=== PATIENT | male | born 1935 | race Caucasian/White ===

== ENCOUNTER → 2016-09-07 | Outpatient (CLI) | payer MEDICARE, BC ==
[2016-09-07 15:26] LABS: Blood Urea Nitrogen 12 mg/dL (9-20); Non-African American GFR(MDRD) >60 (>60 ml/min/1.73 sqM)
--- NOTE | 2016-09-07 16:13 | CT ---
EXAMINATION TYPE: CT abdomen w con DATE OF EXAM: 09/07/2016 3:57 PM REFERENCE: Previous study dated 03/30/2016. HISTORY: R93.5 Abnormal us of Abd HISTORY: Pt states of distention on right side of abdomen. REFERENCE: NONE CT DLP: 686.1 mGy Automated exposure control for dose reduction was used. TECHNIQUE: Helical acquisition through the abdomen and pelvis was obtained following the oral ingesti on of with Oral Contrast and following intravenous administration of 100 mL of Omnipaque 300. The selvin a was reformatted in axial, coronal and sagittal projections. FINDINGS: There is minimal dependent atelectasis within the lungs. There is no pleural or pericardia l fluid heart is not enlarged. Within the abdomen, there is a stable 8.5 mm cyst in the posterior segment of the right lobe of the l iver and several other small cysts throughout the right lobe of the liver. All these are unchanged. T he spleen demonstrates old granulomatous disease. The gallbladder is normal. There is a previous epigastric surgery. Both adrenal glands are normal. There is a stable 1 cm cyst in the mid polar region of the right kidney. There are several small cyst s in the left kidney which are also stable. The pancreas is unremarkable. There is no significant retroperitoneal adenopathy. There is thickening of the bladder wall. There has been a previous sigmoid resection. Large and small bowel loops are otherwise normal. The ap pendix is not visualized. No free fluid and no free air is seen. There is degenerative disc disease and hypertrophic spondylosis within the spine. IMPRESSION: 1. POSTSURGICAL CHANGE. 2. MULTIPLE, STABLE HEPATIC CYSTS. 3. 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 4. STABLE, SIMPLE APPEARING RENAL CYSTS. 5. THICKENING OF THE BLADDER WALL. 6. DEGENERATIVE CHANGES WITHIN THE SPINE.
== END | disposition home or self-care (01) ==
LOC: RADCTMAIN 14:42
PROVIDERS: ATTEND Family Medicine
DX: N28.1 Cyst of kidney, acquired (principal); K76.89 Other specified diseases of liver; N32.89 Other specified disorders of bladder; Z98.890 Other specified postprocedural states
CPT/HCPCS: 82565; 84520; 74160; 36415; Q9967

== ENCOUNTER 2017-02-11 06:44 | Emergency (ER) | payer MEDICARE, BC ==
[2017-02-11 06:50] VITALS: RESP 18
[2017-02-11] MEDS ORDERED: ONDANSETRON 4 MG/2 ML VIAL IVP STA (07:35)
[2017-02-11] MEDS ORDERED: MORPHINE SULFATE 4 MG/ML SYRINGE IV STA (07:35)
[2017-02-11] MEDS ORDERED: SODIUM CHLORIDE 0.9% 1,000 ML IV STA ×2 (07:35)
[2017-02-11 08:22] LABS: Anisocytosis Slight; Basophils % (A) 0 %; CH 36.7; CHCM 34.4; Eosinophils % (A) 1 %; HDW 3.11; HGB 14.2 gm/dL (13.0-17.5); Luc # (Auto) 0.09; Luc % (Auto) 1; Lymphocytes # (A) 0.5 k/uL (1.0-4.8); Lymphocytes % (A) 7 %; MCHC 34.6 g/dL (31.0-37.0); MCV 106.8 fL (80.0-100.0); Macrocytosis Moderate; Mean Platelet Volume 7.9; Monocytes # (A) 0.3 k/uL (0-1.0); Monocytes % (A) 5 %; Neutrophils # (A) 6.3 k/uL (1.3-7.7); Neutrophils % (A) 86 %; RBC 3.83 m/uL (4.30-5.90); RDW 16.2 % (11.5-15.5); WBC 7.3 k/uL (3.8-10.6); WBC (Perox) 7.55
--- NOTE | 2017-02-11 08:25 | ED ---
General Adult HPI - General Chief complaint: Nausea/Vomiting/Diarrhea Stated complaint: Vomiting Time Seen by Provider: 02/11/17 07:31 Source: patient, RN notes reviewed, old records reviewed Mode of arrival: ambulatory Limitations: no limitations - History of Present Illness Initial comments: This is an 79-year-old male to the ER for evaluation of abdominal pain. Severe left lower quadrant of diarrhea with nausea and vomiting. Denies fever. No blood in his stool. Patient has history of bowel pain multiple bowel surgeries history of abdominal hernia. Patient is able Tyrol intake at this time patient had taken anything specifically for pain or nausea at home right now - Related Data Home Medications Medication Instructions Recorded Confirmed Abatacept/Maltose [Orencia] 750 mg IVPB Q30D 12/18/13 02/11/17 Multivitamin [Men's Multi-Vitamin] 1 tab PO DAILY 12/18/13 02/11/17 Methotrexate Sodium [Methotrexate] 12.5 mg PO WE 03/12/14 02/11/17 Aspirin EC [Ecotrin Low Dose] 81 mg PO HS 02/18/15 02/11/17 Iron 18 mg PO DAILY 08/16/15 02/11/17 Docusate [Colace] 100 mg PO DAILY 09/22/15 02/11/17 Folic Acid 0.8 mg PO DAILY 03/30/16 02/11/17 Previous Rx's Medication Instructions Recorded Famotidine [Pepcid] 20 mg PO BID #20 tablet 03/30/16 Allergies Allergy/AdvReac Type Severity Reaction Status Date / Time Penicillins AdvReac Nausea & Verified 02/11/17 06:50 Vomiting & Diarrhea Review of Systems ROS Statement: Those systems with pertinent positive or pertinent negative responses have been documented in the HPI. ROS Other: All systems not noted in ROS Statement are negative. Past Medical History Past Medical History: Blood Disorder, Cancer, GERD/Reflux, Prostate Disorder, Rheumatoid Arthritis (RA) Additional Past Medical History / Comment(s): 03/25/15 large bowel obstruction, HAD SURG W/ COLOSTOMY. RA, Orencia IV q 4 weeks. BPH. HX Alcoholism. Skin Cancer. Chronic Thrombocytopenia. Sinus Prob. 1994 LT Foot Fx. EDEMA RT FOOT. History of Any Multi-Drug Resistant Organisms: None Reported Past Surgical History: Appendectomy, Bowel Resection, Hernia Repair Additional Past Surgical History / Comment(s): Hernia Repair x4-Jayce ing, ventral. Ulcer - gastric scraping. LT Eye Surg D/T Benign Tumor. Skin Cancer Removals. Colonoscopy. BOWEL RESECTION W/ COLOSTOMY 03/26/15; PICC LINE 04/01/15 - OUT NOW. incisional hernial repair at abdomen august 2015/ jun 29 2015 colostomy reversed per pt Past Anesthesia/Blood Transfusion Reactions: No Reported Reaction Additional Past Anesthesia/Blood Transfusion Reaction / Comment(s): Pt has never recieved blood. Past Psychological History: No Psychological Hx Reported Smoking Status: Former smoker - Past Family History Father Family Medical History: CVA/TIA Additional Family Medical History / Comment(s): Father had a pacemaker. He at age 85 yrs. Mother Family Medical History: Hypertension, Skin Disorder Additional Family Medical History / Comment(s): Mother had a pacemaker. She also had psoriasis. Sister(s) Family Medical History: Cancer General Exam Limitations: no limitations General appearance: alert, in no apparent distress Head exam: Present: atraumatic, normocephalic, normal inspection Eye exam: Present: normal appearance, PERRL, EOMI. Absent: scleral icterus, conjunctival injection, periorbital swelling ENT exam: Present: normal exam, mucous membranes moist Neck exam: Present: normal inspection. Absent: tenderness, meningismus, lymphadenopathy Respiratory exam: Present: normal lung sounds bilaterally. Absent: respiratory distress, wheezes, rales, rhonchi, stridor Cardiovascular Exam: Present: regular rate, normal rhythm, normal heart sounds. Absent: systolic murmur, diastolic murmur, rubs, gallop, clicks GI/Abdominal exam: Present: soft, normal bowel sounds. Absent: distended, tenderness, guarding, rebound, rigid Extremities exam: Present: normal inspection, full ROM, normal capillary refill. Absent: tenderness, pedal edema, joint swelling, calf tenderness Back exam: Present: normal inspection Neurological exam: Present: alert, oriented X3, CN II-XII intact Psychiatric exam: Present: normal affect, normal mood Skin exam: Present: warm, dry, intact, normal color. Absent: rash Course Vital Signs 02/11/17 02/11/17 06:45 08:18 Temperature 98 F Pulse Rate 65 60 Respiratory 18 18 Rate Blood Pressure 182/85 187/86 O2 Sat by Pulse 97 100 Oximetry - Reevaluation(s) Reevaluation #1: 02/11/17 09:19 Symptoms improved, patient would like to be discharged home Reevaluation #2: 02/11/17 09:20 Dr. Rodriguez aware of patient in emergency room, okay for discharge follow-up on Sunday EKG Findings - EKG Comments: EKG Findings:: EKG shows sinus rhythm rate of 70, pO2 26, QRS 132, QTC 470 Medical Decision Making - Medical Decision Making 81 male the ER for reevaluation of nausea vomiting history of hernia symptoms improved patient can be discharged home as needed be discharged home will follow -up with Dr. Rodriguez in 2 days - Lab Data Result diagrams: 02/11/17 07:33 02/11/17 07:33 Lab Results 02/11/17 02/11/17 02/11/17 Range/Units 07:33 07:33 07:33 WBC 7.3 (3.8-10.6) k/uL RBC 3.83 L (4.30-5.90) m/uL Hgb 14.2 (13.0-17.5) gm/dL Hct 41.0 (39.0-53.0) % MCV 106.8 H (80.0-100.0) fL MCH 37.0 H (25.0-35.0) pg MCHC 34.6 (31.0-37.0) g/dL RDW 16.2 H (11.5-15.5) % Plt Count 252 (150-450) k/uL Neutrophils % 86 % Lymphocytes % 7 % Monocytes % 5 % Eosinophils % 1 % Basophils % 0 % Neutrophils # 6.3 (1.3-7.7) k/uL Lymphocytes # 0.5 L (1.0-4.8) k/uL Monocytes # 0.3 (0-1.0) k/uL Eosinophils # 0.0 (0-0.7) k/uL Basophils # 0.0 (0-0.2) k/uL Anisocytosis Slight Macrocytosis Moderate PT (9.0-12.0) sec INR (<1.2) APTT (22.0-30.0) sec Sodium 137 (137-145) mmol/L Potassium 4.8 (3.5-5.1) mmol/L Chloride 108 H (98-107) mmol/L Carbon Dioxide 26 (22-30) mmol/L Anion Gap 3 mmol/L BUN 11 (9-20) mg/dL Creatinine 0.74 (0.66-1.25) mg/dL Est GFR (MDRD) Af Amer >60 (>60 ml/min/1.73 sqM) Est GFR (MDRD) Non-Af >60 (>60 ml/min/1.73 sqM) Glucose 80 (74-99) mg/dL Plasma Lactic Acid Johny (0.7-2.0) mmol/L Calcium 8.5 (8.4-10.2) mg/dL Phosphorus 2.3 L (2.5-4.5) mg/dL Magnesium 2.3 (1.6-2.3) mg/dL Total Bilirubin 0.8 (0.2-1.3) mg/dL AST 52 (17-59) U/L ALT 38 (21-72) U/L Alkaline Phosphatase 75 (38-126) U/L Total Creatine Kinase 44 L (55-170) U/L CK-MB (CK-2) 0.6 (0.0-2.4) ng/mL CK-MB (CK-2) Rel Index 1.4 Troponin I 0.018 (0.000-0.034) ng/mL Total Protein 6.3 (6.3-8.2) g/dL Albumin 3.4 L (3.5-5.0) g/dL 02/11/17 02/11/17 Range/Units 07:33 07:33 WBC (3.8-10.6) k/uL RBC (4.30-5.90) m/uL Hgb (13.0-17.5) gm/dL Hct (39.0-53.0) % MCV (80.0-100.0) fL MCH (25.0-35.0) pg MCHC (31.0-37.0) g/dL RDW (11.5-15.5) % Plt Count (150-450) k/uL Neutrophils % % Lymphocytes % % Monocytes % % Eosinophils % % Basophils % % Neutrophils # (1.3-7.7) k/uL Lymphocytes # (1.0-4.8) k/uL Monocytes # (0-1.0) k/uL Eosinophils # (0-0.7) k/uL Basophils # (0-0.2) k/uL Anisocytosis Macrocytosis PT 11.5 (9.0-12.0) sec INR 1.2 H (<1.2) APTT 23.8 (22.0-30.0) sec Sodium (137-145) mmol/L Potassium (3.5-5.1) mmol/L Chloride (98-107) mmol/L Carbon Dioxide (22-30) mmol/L Anion Gap mmol/L BUN (9-20) mg/dL Creatinine (0.66-1.25) mg/dL Est GFR (MDRD) Af Amer (>60 ml/min/1.73 sqM) Est GFR (MDRD) Non-Af (>60 ml/min/1.73 sqM) Glucose (74-99) mg/dL Plasma Lactic Acid Johny 0.9 (0.7-2.0) mmol/L Calcium (8.4-10.2) mg/dL Phosphorus (2.5-4.5) mg/dL Magnesium (1.6-2.3) mg/dL Total Bilirubin (0.2-1.3) mg/dL AST (17-59) U/L ALT (21-72) U/L Alkaline Phosphatase (38-126) U/L Total Creatine Kinase (55-170) U/L CK-MB (CK-2) (0.0-2.4) ng/mL CK-MB (CK-2) Rel Index Troponin I (0.000-0.034) ng/mL Total Protein (6.3-8.2) g/dL Albumin (3.5-5.0) g/dL - Radiology Data Radiology results: report reviewed (X-ray KUB ileus), image reviewed Disposition Clinical Impression: Nausea and vomiting, Dehydration Disposition: HOME SELF-CARE Condition: Good Instructions: Acute Nausea and Vomiting (ED) Referrals: Purvi Chew DO [Primary Care Provider] - 1-2 days
[2017-02-11 08:30] LABS: INR 1.2 (<1.2); Partial Thromboplastin Time 23.8 sec (22.0-30.0); Prothrombin Time 11.5 sec (9.0-12.0)
--- NOTE | 2017-02-11 08:33 | XR ---
EXAMINATION TYPE: XR KUB DATE OF EXAM: 02/11/2017 COMPARISON: NONE HISTORY: Pain TECHNIQUE: Single supine KUB image of the abdomen is obtained FINDINGS: Mild distention of both small and large bowel with scattered air-fluid level seen may reflect ileus. Epigastric surgical clips noted. No convincing evidence for pneumoperitoneum. No unusual calcifications. The lung bases are clear. The osseous structures are intact. IMPRESSION: 1. Nonspecific bowel gas pattern. Correlate for ileus. Progress studies are advised.
[2017-02-11 08:42] LABS: ALT 38 U/L (21-72); AST 52 U/L (17-59); Alkaline Phosphatase 75 U/L (38-126); Anion Gap 3 mmol/L; Blood Urea Nitrogen 11 mg/dL (9-20); Calcium 8.5 mg/dL (8.4-10.2); Carbon Dioxide 26 mmol/L (22-30); Chloride 108 mmol/L (98-107); Glucose 80 mg/dL (74-99); Magnesium 2.3 mg/dL (1.6-2.3); Non-African American GFR(MDRD) >60 (>60 ml/min/1.73 sqM); Phosphorous 2.3 mg/dL (2.5-4.5); Sodium 137 mmol/L (137-145); Total Bilirubin 0.8 mg/dL (0.2-1.3); Total Protein 6.3 g/dL (6.3-8.2)
[2017-02-11 08:45] LABS: Potassium 4.8 mmol/L (3.5-5.1)
[2017-02-11 08:58] LABS: Creatine Kinase MB 0.6 ng/mL (0.0-2.4); Troponin I 0.018 ng/mL (0.000-0.034)
[2017-02-11 09:19] LABS: Appearance,Urine Turbid (Clear); Bacteria,Urine Rare /hpf; Bilirubin,Urine Negative (Negative); Glucose,Urine (UA) Negative (Negative); Ketones,Urine Negative (Negative); Leukocyte Esterase,Urine Negative (Negative); Mucus,Urine Many /hpf; Nitrite,Urine Negative (Negative); PH, Urine 7.5 (5.0-8.0); Particle Count 40033; Protein,Urine Trace (Negative); RBC,Urine 2 /hpf (0-5); Specific Gravity,Urine 1.021 (1.001-1.035); UA Billing (MACRO vs. MICRO) MICRO; Urobilinogen,Urine <2.0 mg/dL (<2.0)
[2017-02-11 09:42] VITALS: BP 182/85; PULSE 74; TEMP 98
== END 2017-02-11 09:42 | disposition home or self-care (01) ==
LOC: EC 06:44
DX: E86.0 Dehydration (principal); R11.2 Nausea with vomiting, unspecified; R10.32 Left lower quadrant pain; M06.9 Rheumatoid arthritis, unspecified; Z85.828 Personal history of other malignant neoplasm of skin; Z90.49 Acquired absence of other specified parts of digestive tract; Z98.890 Other specified postprocedural states; Z88.0 Allergy status to penicillin; Z87.891 Personal history of nicotine dependence; Z79.82 Long term (current) use of aspirin; Z79.899 Other long term (current) drug therapy
CPT/HCPCS: 36415; 93005; 80053; 82550; 82553; 83605; 83735; 84100; 84484; 85025; 85610; 85730; 81001; 87086; 74000; 99284; 96374; 96375; 96361; J2270; J2405

== ENCOUNTER → 2017-02-16 | Outpatient (CLI) | payer MEDICARE, BC | END | disposition home or self-care (01) | LOC: LABWHC1 12:30 | PROVIDERS: ATTEND Surgery | DX: Z01.812 Encounter for preprocedural laboratory examination (principal) | CPT/HCPCS: 86850; 86900; 86901 ==

== ENCOUNTER 2017-02-21 09:20 | Inpatient (IN) | payer MEDICARE, BC ==
[2017-02-16 09:30] VITALS: BMI 25.1
[~2017-02-21 09:20] MED LIST: DEXAMETHASONE SOD PHOSPHATE 10 MG/ML 1 ML VIAL IV ONE; FAMOTIDINE 20 MG/2 ML VIAL IV PRN; HEPARIN SODIUM,PORCINE 5,000 UNIT/ML 1 ML VIAL SQ ONE; LIDOCAINE 1% 20 ML VIAL (10MG/ML) FOR IV START INTRADERMA PRN; ceFAZolin 2 GM in SODIUM CHLORIDE 0.9% 100 ML IVPB ONE
[2017-02-21] MEDS: LACTATED RINGERS 1,000 ML IV SCH ×2 (10:03→11:17)
--- NOTE | 2017-02-21 10:51 | P.GSHP ---
History of Present Illness H&P Date: 02/21/17 Chief Complaint: Incarcerated incisional hernia This is a 81-year-old male who presents today for open repair of recurrent incarcerated incisional hernia. Patient's had a previous midline laparotomy related to colectomy and reversal classic. The patient has developed a recurrent incisional hernia. There is incarcerated omentum within the hernia. He's had a previous laparoscopic incisional hernia repair. Past Medical History Past Medical History: Blood Disorder, Cancer, GERD/Reflux, Prostate Disorder, Rheumatoid Arthritis (RA) Additional Past Medical History / Comment(s): INCISIONAL HERNIA, 03/25/15 large bowel obstruction, HAD SURG W/ COLOSTOMY. REVERSED NOW, HX Alcoholism. Skin Cancer. Chronic Thrombocytopenia. Sinus Prob. History of Any Multi-Drug Resistant Organisms: None Reported Past Surgical History: Appendectomy, Bowel Resection, Hernia Repair Additional Past Surgical History / Comment(s): Hernia Repair x4-Jayce ing, ventral. Ulcer -gastric scraping. LT Eye Surg D/T Benign Tumor. Skin Cancer Removals. Colonoscopy. BOWEL RESECTION W/ COLOSTOMY 03/26/15; PICC LINE 04/01/15 - OUT NOW. incisional hernial repair at abdomen august 2015/ jun 29 2015 colostomy reversed per pt Past Anesthesia/Blood Transfusion Reactions: No Reported Reaction Additional Past Anesthesia/Blood Transfusion Reaction / Comment(s): Pt has never recieved blood. Smoking Status: Former smoker - Past Family History Father Family Medical History: CVA/TIA Additional Family Medical History / Comment(s): Father had a pacemaker. He at age 85 yrs. Mother Family Medical History: Hypertension, Skin Disorder Additional Family Medical History / Comment(s): Mother had a pacemaker. She also had psoriasis. Sister(s) Family Medical History: Cancer Medications and Allergies Home Medications Medication Instructions Recorded Confirmed Type Abatacept/Maltose [Orencia] 750 mg IVPB Q30D 12/18/13 02/21/17 History Multivitamin [Men's Multi-Vitamin] 1 tab PO DAILY 12/18/13 02/21/17 History Methotrexate Sodium [Methotrexate] 12.5 mg PO FR 03/12/14 02/21/17 History Aspirin EC [Ecotrin Low Dose] 81 mg PO HS 02/18/15 02/21/17 History Iron 18 mg PO DAILY 08/16/15 02/21/17 History Docusate [Colace] 100 mg PO DAILY 09/22/15 02/21/17 History Folic Acid 0.8 mg PO DAILY 03/30/16 02/21/17 History Allergies Allergy/AdvReac Type Severity Reaction Status Date / Time Penicillins AdvReac Nausea & Verified 02/16/17 09:24 Vomiting & Diarrhea Surgical - Exam Vital Signs Temp Pulse Resp BP Pulse Ox 97.0 F L 58 L 16 160/78 95 02/21/17 09:46 02/21/17 09:46 02/21/17 09:46 02/21/17 09:46 02/21/17 09:46 - General well developed, no distress - Eyes PERRL - ENT normal pinna - Neck no masses - Respiratory normal expansion - Cardiovascular Rhythm: regular - Abdomen Abdomen: soft, non tender Hernia: incisional (Recurrent incisional hernia located along midline scar) Assessment and Plan Plan: Incisional hernia. We'll perform open repair with mesh.
[2017-02-21] MEDS ORDERED: ROCURONIUM BROMIDE 10 MG/ML 10 ML VIAL IV ONE (11:17)
[2017-02-21] MEDS ORDERED: PHENYLEPHRINE-0.9% NACL SYG 1 MG/10 ML SYRINGE ONE (11:17)
[2017-02-21] MEDS ORDERED: PROPOFOL 10 MG/ML 20 ML VIAL IV ONE (11:17)
[2017-02-21] MEDS ORDERED: ePHEDrine 50 MG/ML 1 ML AMP ONE (11:17)
[2017-02-21] MEDS ORDERED: ePHEDrine SULFATE/0.9% NACL/PF 50 MG/5 ML SYRINGE IV ONE (11:17)
[2017-02-21] MEDS ORDERED: NEOSTIGMINE 1 MG/ML 10 ML VIAL ONE (11:17)
[2017-02-21] MEDS ORDERED: SUCCINYLCHOLINE CHLORIDE 100 MG/5 ML SYR IV ONE (11:17)
[2017-02-21] MEDS ORDERED: LIDOCAINE 1% INJ 10MG/ML (20 ML MDV) ONE (11:17)
[2017-02-21] MEDS ORDERED: GLYCOPYRROLATE 0.2 MG/ML 2 ML VIAL ONE (11:17)
[2017-02-21] MEDS ORDERED: fentaNYL (PF) 50 MCG/ML 2 ML AMP ONE (11:17)
[2017-02-21] MEDS ORDERED: MIDAZOLAM 2 MG/2 ML VIAL ONE (11:17)
[2017-02-21] MEDS ORDERED: LIDOCAINE 2%-EPI 1:100,000 20 ML VIAL SQ ONE (12:05)
[2017-02-21] MEDS ORDERED: BUPIVACAINE (PF) 0.25% 30 ML VIAL SQ ONE (12:12)
[2017-02-21] MEDS ORDERED: HYDROmorphone 1 MG/ML 1 ML SYRINGE IVP PRN (13:12)
[2017-02-21] MEDS ORDERED: LACTATED RINGERS 1,000 ML IV ONE (13:12)
[2017-02-21] MEDS ORDERED: NALOXONE 0.4 MG/ML 1 ML VIAL IV PRN (13:12)
[2017-02-21] MEDS ORDERED: ACETAMINOPHEN TAB 325 MG TAB PO PRN (13:12)
--- NOTE | 2017-02-21 13:21 | P.OP ---
Date of Procedure: 02/21/17 Preoperative Diagnosis: Recurrent incarcerated incisional hernia Postoperative Diagnosis: Recurrent incarcerated incisional hernia Procedure(s) Performed: Repair of incarcerated incisional hernia with mesh Implants: Anesthesia: BETHA Surgeon: Daniel Kaur Estimated Blood Loss (ml): 50 Pathology: none sent Condition: stable Disposition: PACU Indications for Procedure: Operative Findings: Description of Procedure: The patient's placed the operative table in the supine position. He received general anesthesia. His abdomen was prepped and draped usual sterile fashion. Patient had incisional hernias located along his midline scar. This was incised and then using electrocautery the subcutaneous tissues were divided of the fascia. The hernia defect was then opened using cautery. There multiple hernias located along the midline incision. The fascial defect was visualized. And then the fascial defect was closed using 0 Ethibond suture. After the fascia was closed the fascia was imbricated using O Gloria fix PDS suture. Next a 8 x 10" Prolene mesh was placed top the repair and secured strap tacker. A NAE drains placed over top the repair brought through separate stab incision. Klever's fascia closed with 2-0 Vicryl suture. Skin was closed gem. A binder was placed. Patient sent to recovery in stable condition.
--- NOTE | 2017-02-21 13:30 | XR ---
EXAMINATION TYPE: XR abdomen 1V DATE OF EXAM: 02/21/2017 CLINICAL HISTORY: Missing single suture needle in the OR. TECHNIQUE: Single portable supine abdominal radiograph was obtained. COMPARISON: 02/11/2017 FINDINGS: Surgical skin gem are seen in the midline abdomen and pelvis as well as a single surgi rene drain oriented cephalad with the distal tip overlying the L1 vertebral body. Other metallic surgi rene clips are seen near the region of the gastric fundus, unchanged from the prior examination. No ot her radiopaque densities are appreciated to account for the missing suture needle. Scattered gas is s een in non-distended small bowel loops. Gas and fecal material is seen in non-distended colon. The lung bases are clear and the osseous structures are intact. Generative changes are seen of the lumbos acral spine. IMPRESSION: 1. No radiopaque foreign body. 2. Postsurgical changes of the abdomen.
[2017-02-21] MEDS: HYDROmorphone 1 MG/ML 1 ML SYRINGE IVP PRN ×2 (13:43→13:50)
[2017-02-21] MEDS: ONDANSETRON 4 MG/2 ML VIAL IVP PRN ×2 (13:57→20:51)
[2017-02-21] MEDS: HYDROcodone/APAP 5-325MG 1 EACH TAB PO PRN ×2 (17:28→23:22)
[2017-02-21] MEDS: DOCUSATE 100 MG CAP PO SCH (20:51)
[2017-02-21] MEDS: FAMOTIDINE 20 MG TAB PO SCH (20:51)
[2017-02-21] MEDS ORDERED: SODIUM CHLORIDE 0.9% 500 ML IV ONE (23:34)
[2017-02-22] MEDS: HYDROcodone/APAP 5-325MG 1 EACH TAB PO PRN ×2 (04:34→10:29)
[2017-02-22] MEDS: ONDANSETRON 4 MG/2 ML VIAL IVP PRN ×4 (05:56→22:47)
[2017-02-22 08:01] LABS: ALT 27 U/L (21-72); AST 18 U/L (17-59); Alkaline Phosphatase 55 U/L (38-126); Anion Gap 6 mmol/L; Blood Urea Nitrogen 18 mg/dL (9-20); Calcium 8.1 mg/dL (8.4-10.2); Carbon Dioxide 25 mmol/L (22-30); Chloride 104 mmol/L (98-107); Glucose 98 mg/dL (74-99); Non-African American GFR(MDRD) >60 (>60 ml/min/1.73 sqM); Potassium 4.1 mmol/L (3.5-5.1); Sodium 135 mmol/L (137-145); Total Bilirubin 0.7 mg/dL (0.2-1.3); Total Protein 4.8 g/dL (6.3-8.2)
[2017-02-22] MEDS: DOCUSATE 100 MG CAP PO SCH ×2 (08:05→20:22)
[2017-02-22] MEDS: ENOXAPARIN 40 MG/0.4 ML SYRINGE SQ SCH (08:05)
[2017-02-22] MEDS: FAMOTIDINE 20 MG TAB PO SCH ×2 (08:05→20:22)
[2017-02-22 08:15] LABS: Anisocytosis Slight; Basophils % (A) 0 %; CH 36.2; CHCM 33.6; Eosinophils % (A) 0 %; HCT 36.3 % (39.0-53.0); HDW 2.81; HGB 12.2 gm/dL (13.0-17.5); Luc % (Auto) 1; Lymphocytes # (A) 0.7 k/uL (1.0-4.8); Lymphocytes % (A) 8 %; MCH 36.1 pg (25.0-35.0); MCHC 33.5 g/dL (31.0-37.0); MCV 107.8 fL (80.0-100.0); Macrocytosis Marked; Monocytes # (A) 0.5 k/uL (0-1.0); Monocytes % (A) 5 %; Neutrophils # (A) 7.6 k/uL (1.3-7.7); Neutrophils % (A) 86 %; RBC 3.37 m/uL (4.30-5.90); RDW 16.3 % (11.5-15.5); WBC 8.9 k/uL (3.8-10.6); WBC (Perox) 9.41
[2017-02-22] MEDS: FOLIC ACID 1 MG TAB PO SCH (08:50)
[2017-02-22] MEDS: LACTATED RINGERS 1,000 ML IV SCH (08:51)
[2017-02-22] MEDS ORDERED: NON-FORMULARY DRUG (Iron [Iron] 18 MG) PO SCH (09:00)
[2017-02-22 09:51] LABS: Manual Review Performed
[2017-02-22] MEDS: SODIUM CHLORIDE 0.9% 1,000 ML IV SCH (11:18)
[2017-02-22] MEDS: MAG HYDROX/AL HYDROX/SIMETH 30 ML CUP PO PRN (14:24)
[2017-02-22] MEDS ORDERED: PROCHLORPERAZINE 5 MG TAB PO PRN (15:44)
[2017-02-22] MEDS ORDERED: Potassium Replacement Protocol 1 EACH MISC MISCELLANE PRN (15:45)
[2017-02-22] MEDS ORDERED: Magnesium Replacement Protocol 1 EACH MISC MISCELLANE PRN (15:45)
--- NOTE | 2017-02-22 15:53 | P.CONS ---
History of Present Illness - Reason for Consult Consult date: 02/22/17 Medical management Requesting physician: Daniel Kaur - Chief Complaint Abdominal hernia - History of Present Illness This is a 81-year-old gentleman with known chronic abdominal hernia presented to the hospital for recurrent incarcerated incisional hernia repair. Patient is postoperative day #1. He is complaining of persistent nausea. He said that his pain is not well controlled. The specimen gas. No vomiting as of yet. He was also noted to have low urine output overnight. I was asked to see for medical management. Review of Systems Review of system: 14 points review of systems were obtained and were negative except to what were mentioned in the HPI. Past Medical History Past Medical History: Blood Disorder, Cancer, GERD/Reflux, Prostate Disorder, Rheumatoid Arthritis (RA) Additional Past Medical History / Comment(s): INCISIONAL HERNIA, 03/25/15 large bowel obstruction, HAD SURG W/ COLOSTOMY. REVERSED NOW, HX Alcoholism. Skin Cancer. Chronic Thrombocytopenia. Sinus Prob. History of Any Multi-Drug Resistant Organisms: None Reported Past Surgical History: Appendectomy, Bowel Resection, Hernia Repair Additional Past Surgical History / Comment(s): Hernia Repair x4-Jayce ing, ventral. Ulcer -gastric scraping. LT Eye Surg D/T Benign Tumor. Skin Cancer Removals. Colonoscopy. BOWEL RESECTION W/ COLOSTOMY 03/26/15; PICC LINE 04/01/15 - OUT NOW. incisional hernial repair at abdomen august 2015/ jun 29 2015 colostomy reversed per pt Past Anesthesia/Blood Transfusion Reactions: No Reported Reaction Additional Past Anesthesia/Blood Transfusion Reaction / Comm: Pt has never recieved blood. Past Psychological History: No Psychological Hx Reported Additional Psychological History / Comment(s): Pt states he no longer is depressed (he had been after spouses 2012). Smoking Status: Former smoker Past Alcohol Use History: None Reported Additional Past Alcohol Use History / Comment(s): Pt states he smoked for about 3 yrs and quit in 1962. He has hx of alcoholism; Past Drug Use History: None Reported - Past Family History Father Family Medical History: CVA/TIA Additional Family Medical History / Comment(s): Father had a pacemaker. He at age 85 yrs. Mother Family Medical History: Hypertension, Skin Disorder Additional Family Medical History / Comment(s): Mother had a pacemaker. She also had psoriasis. Sister(s) Family Medical History: Cancer Medications and Allergies Home Medications Medication Instructions Recorded Confirmed Type Abatacept/Maltose [Orencia] 750 mg IVPB Q30D 12/18/13 02/21/17 History Multivitamin [Men's Multi-Vitamin] 1 tab PO DAILY 12/18/13 02/21/17 History Methotrexate Sodium [Methotrexate] 12.5 mg PO FR 03/12/14 02/21/17 History Aspirin EC [Ecotrin Low Dose] 81 mg PO HS 02/18/15 02/21/17 History Iron 18 mg PO DAILY 08/16/15 02/21/17 History Docusate [Colace] 100 mg PO DAILY 09/22/15 02/21/17 History Folic Acid 0.8 mg PO DAILY 03/30/16 02/21/17 History Allergies Allergy/AdvReac Type Severity Reaction Status Date / Time Penicillins AdvReac Nausea & Verified 02/16/17 09:24 Vomiting & Diarrhea Physical Exam Vitals: Vital Signs Temp Pulse Resp BP BP Pulse Ox 02/22/17 07:35 14 02/22/17 07:00 97.6 F 71 14 168/77 96 02/22/17 00:47 98.0 F 61 16 167/74 02/21/17 19:30 98.3 F 96 16 127/59 96 02/21/17 17:02 84 149/69 96 02/21/17 16:47 81 134/68 97 02/21/17 16:32 78 130/64 96 02/21/17 16:17 76 138/63 96 02/21/17 16:02 73 134/64 97 Intake and Output 02/22/17 02/22/17 02/22/17 06:59 14:59 22:59 Intake Total 1400 800 Output Total 348 Balance 1052 800 Intake: Intake, IV Titration 900 800 Amount Lactated Ringers 1,000 ml 900 @ 100 mls/hr IV .Q10H ONE Rx#:[id number] Sodium Chloride 0.9% 1, 800 000 ml @ 100 mls/hr IV . Q10H MIRELLA Rx#:[id number] Oral 500 Output: Drainage 48 Abdomen 48 Urine 300 Other: Voiding Method Indwelling Catheter Indwelling Catheter General: The patient is awake and alert, in no distress Eye: there is normal conjunctiva bilaterally. Neck: The neck is supple, there is no JVD. Cardiovascular: Normal S1-S2, no S3-S4, no murmurs. Respiratory: Lungs clear to auscultation bilaterally Gastrointestinal: with abdominal binder in place. there is moderate tenderness to palpation. Musculo.skeletal: There is no pedal edema. Neurological:. Speech is normal. Skin: Skin is warm and dry Results CBC & Chem 7: 02/22/17 06:42 02/22/17 06:42 Labs: Abnormal Lab Results - Last 24 Hours (Table) 02/22/17 02/22/17 Range/Units 06:42 06:42 RBC 3.37 L (4.30-5.90) m/uL Hgb 12.2 L (13.0-17.5) gm/dL Hct 36.3 L (39.0-53.0) % MCV 107.8 H (80.0-100.0) fL MCH 36.1 H (25.0-35.0) pg RDW 16.3 H (11.5-15.5) % Lymphocytes # 0.7 L (1.0-4.8) k/uL Sodium 135 L (137-145) mmol/L Calcium 8.1 L (8.4-10.2) mg/dL Total Protein 4.8 L (6.3-8.2) g/dL Albumin 2.6 L (3.5-5.0) g/dL Assessment and Plan Plan: 1. Recurrent incarcerated incisional hernia postoperative day #1 status post surgical repair with mesh placement 2. Underlying rheumatoid arthritis on methotrexate would hold during this hospitalization 3. History of alcohol abuse now in remission Today, I reviewed his medication list and lab work results. We'll continue symptomatic management for his nausea with Zofran and Compazine. Continue IV fluid hydration and monitor urine output closely. [place] catheter inserted last night for accurate urine output measurements. Kidney function within acceptable range. Repeat lab work in the morning. DVT prophylaxis with subcu Lovenox. Thank you very much for the consultation. I will continue to follow up on him closely.
[2017-02-22] MEDS: traMADol 50 MG TAB PO PRN ×2 (16:45→22:47)
--- NOTE | 2017-02-22 18:56 | P.PN ---
Progress Note - Text The patient has complaints of some nausea and incisional pain. On exam his vital signs are stable. His abdomen is soft. His incision is clean dry and intact. Status post open repair of large incisional hernia. Patient will remain in the hospital for algesia and treatment of nausea.
[2017-02-22] MEDS: METOCLOPRAMIDE 5 MG/ML 2 ML VIAL IVP SCH ×2 (20:21→23:16)
[2017-02-22] MEDS: LORazepam 2 MG/ML SYRINGE IV PRN (21:21)
[2017-02-23] MEDS: LORazepam 2 MG/ML SYRINGE IV PRN (02:27)
[2017-02-23] MEDS: traMADol 50 MG TAB PO PRN (04:54)
[2017-02-23] MEDS: METOCLOPRAMIDE 5 MG/ML 2 ML VIAL IVP SCH ×3 (05:00→17:27)
[2017-02-23 08:09] LABS: ALT 35 U/L (21-72); AST 29 U/L (17-59); Alkaline Phosphatase 51 U/L (38-126); Anion Gap 6 mmol/L; Blood Urea Nitrogen 12 mg/dL (9-20); Calcium 7.7 mg/dL (8.4-10.2); Carbon Dioxide 23 mmol/L (22-30); Chloride 104 mmol/L (98-107); Glucose 108 mg/dL (74-99); Magnesium 1.6 mg/dL (1.6-2.3); Non-African American GFR(MDRD) >60 (>60 ml/min/1.73 sqM); Sodium 133 mmol/L (137-145); Total Bilirubin 0.7 mg/dL (0.2-1.3); Total Protein 4.9 g/dL (6.3-8.2)
[2017-02-23] MEDS: FAMOTIDINE 20 MG TAB PO SCH ×2 (08:42→22:40)
[2017-02-23] MEDS: FOLIC ACID 1 MG TAB PO SCH (08:42)
[2017-02-23] MEDS: ENOXAPARIN 40 MG/0.4 ML SYRINGE SQ SCH (08:42)
[2017-02-23] MEDS: DOCUSATE 100 MG CAP PO SCH ×2 (08:42→22:41)
[2017-02-23 09:02] LABS: Anisocytosis Slight; Basophils % (A) 0 %; CH 36.2; CHCM 33.8; Eosinophils % (A) 1 %; HCT 33.4 % (39.0-53.0); HDW 2.85; HGB 11.3 gm/dL (13.0-17.5); Luc # (Auto) 0.07; Luc % (Auto) 1; Lymphocytes # (A) 0.5 k/uL (1.0-4.8); Lymphocytes % (A) 6 %; MCH 36.2 pg (25.0-35.0); MCHC 33.9 g/dL (31.0-37.0); MCV 106.9 fL (80.0-100.0); Macrocytosis Marked; Mean Platelet Volume 7.6; Monocytes # (A) 0.4 k/uL (0-1.0); Monocytes % (A) 5 %; Neutrophils # (A) 7.4 k/uL (1.3-7.7); Neutrophils % (A) 88 %; RBC 3.12 m/uL (4.30-5.90); RDW 16.3 % (11.5-15.5); WBC 8.5 k/uL (3.8-10.6); WBC (Perox) 8.86
--- NOTE | 2017-02-23 13:09 | P.PN ---
Subjective Patient is awake and alert today. He had problems with sundowning and was confused last night. Apparently he told his nurse that his willing to and his life. Today, he denies any suicidal thoughts. He said that he did not have any specific plans. He does not recall what happened exactly. He is currently on suicidal precaution with a sitter at bedside. He is cooperative this morning. He is oriented 3. Objective - Vital Signs Vital signs: Vital Signs Temp 99.7 F H 02/23/17 08:40 Pulse 81 02/23/17 08:40 Resp 16 02/23/17 08:40 BP 160/78 02/23/17 08:40 Pulse Ox 96 02/23/17 08:40 Intake & Output 02/22/17 02/23/17 02/23/17 18:59 06:59 18:59 Intake Total 800 Output Total 50 2910 67 Balance 750 -2910 -67 Intake: Intake, IV Titration 800 Amount Sodium Chloride 0.9% 1, 800 000 ml @ 100 mls/hr IV . Q10H [facility] Rx#:[id number] Output: Drainage 50 210 65 Abdomen 50 210 65 Urine 2000 Stool 2 Urine/Stool Mix 700 Other: Voiding Method Indwelling Catheter Indwelling Catheter - Exam General: The patient is awake and alert, in no distress Eye: there is normal conjunctiva bilaterally. Neck: The neck is supple, there is no JVD. Cardiovascular: Normal S1-S2, no S3-S4, no murmurs. Respiratory: Lungs clear to auscultation bilaterally Gastrointestinal: There is an abdominal binder in place Musculoskeletal: There is no pedal edema. Neurological:. Speech is normal. Skin: Skin is warm and dry - Labs CBC & Chem 7: 02/23/17 07:37 02/23/17 07:37 Labs: Abnormal Lab Results - Last 24 Hours (Table) 02/23/17 02/23/17 Range/Units 07:37 07:37 RBC 3.12 L (4.30-5.90) m/uL Hgb 11.3 L (13.0-17.5) gm/dL Hct 33.4 L (39.0-53.0) % MCV 106.9 H (80.0-100.0) fL MCH 36.2 H (25.0-35.0) pg RDW 16.3 H (11.5-15.5) % Lymphocytes # 0.5 L (1.0-4.8) k/uL Sodium 133 L (137-145) mmol/L Glucose 108 H (74-99) mg/dL Calcium 7.7 L (8.4-10.2) mg/dL Total Protein 4.9 L (6.3-8.2) g/dL Albumin 2.6 L (3.5-5.0) g/dL Assessment and Plan Plan: 1. Recurrent incarcerated incisional hernia postoperative day #2 status post surgical repair with mesh placement 2. Underlying rheumatoid arthritis on methotrexate would hold during this hospitalization 3. History of alcohol abuse now in remission 4. Hospital-acquired delirium: Mostly with sundowning symptoms. Patient is currently awake and alert. He denies being depressed. He denies any suicidal thoughts or ideation. Okay to continue the sitter for tonight and may discontinue tomorrow if symptoms do not recur. Today, I reviewed his medication list and lab work results. We'll continue symptomatic management for his nausea with Zofran and Compazine. Continue IV fluid hydration and monitor urine output closely. [place] catheter inserted last night for accurate urine output measurements. Kidney function within acceptable range. Repeat lab work in the morning. DVT prophylaxis with subcu Lovenox. Thank you very much for the consultation. I will continue to follow up on him closely.
--- NOTE | 2017-02-23 14:38 | P.PN ---
Progress Note - Text The patient had issues with confusion. He has some abdominal pain. On exam his vital signs are stable. His abdomen is soft. His incision site is clean dry and intact. The Patient has resolving postoperative nausea. He will hopefully discharge home tomorrow. Dr. Ashton will be covering me.
[2017-02-23] MEDS: LACTATED RINGERS 1,000 ML IV SCH (15:07)
[2017-02-23] MEDS: SODIUM CHLORIDE 0.9% 1,000 ML IV SCH (17:27)
[2017-02-24] MEDS: METOCLOPRAMIDE 5 MG/ML 2 ML VIAL IVP SCH ×5 (00:34→23:01)
[2017-02-24] MEDS: ONDANSETRON 4 MG/2 ML VIAL IVP PRN (03:45)
[2017-02-24] MEDS: SODIUM CHLORIDE 0.9% 1,000 ML IV SCH ×2 (07:31→12:37)
[2017-02-24 07:43] LABS: Anisocytosis Slight; Basophils % (A) 0 %; CH 36.6; CHCM 34.1; Eosinophils # (A) 0.1 k/uL (0-0.7); Eosinophils % (A) 1 %; HCT 32.8 % (39.0-53.0); HDW 2.85; Luc # (Auto) 0.06; Luc % (Auto) 1; Lymphocytes # (A) 0.5 k/uL (1.0-4.8); Lymphocytes % (A) 8 %; MCHC 33.5 g/dL (31.0-37.0); MCV 107.5 fL (80.0-100.0); Macrocytosis Marked; Mean Platelet Volume 7.1; Monocytes # (A) 0.4 k/uL (0-1.0); Monocytes % (A) 6 %; Neutrophils # (A) 5.1 k/uL (1.3-7.7); Neutrophils % (A) 83 %; RBC 3.05 m/uL (4.30-5.90); RDW 16.2 % (11.5-15.5); WBC 6.2 k/uL (3.8-10.6); WBC (Perox) 6.25
[2017-02-24 08:16] LABS: ALT 35 U/L (21-72); AST 34 U/L (17-59); Alkaline Phosphatase 61 U/L (38-126); Anion Gap 4 mmol/L; Blood Urea Nitrogen 5 mg/dL (9-20); Calcium 7.7 mg/dL (8.4-10.2); Carbon Dioxide 25 mmol/L (22-30); Chloride 103 mmol/L (98-107); Glucose 94 mg/dL (74-99); Magnesium 1.8 mg/dL (1.6-2.3); Non-African American GFR(MDRD) >60 (>60 ml/min/1.73 sqM); Potassium 3.8 mmol/L (3.5-5.1); Sodium 132 mmol/L (137-145); Total Bilirubin 0.6 mg/dL (0.2-1.3); Total Protein 4.7 g/dL (6.3-8.2)
[2017-02-24] MEDS: ENOXAPARIN 40 MG/0.4 ML SYRINGE SQ SCH (08:23)
[2017-02-24] MEDS: FOLIC ACID 1 MG TAB PO SCH (08:24)
[2017-02-24] MEDS: DOCUSATE 100 MG CAP PO SCH ×2 (08:24→20:34)
[2017-02-24] MEDS: FAMOTIDINE 20 MG TAB PO SCH ×2 (08:24→20:34)
--- NOTE | 2017-02-24 09:56 | P.PN ---
Subjective Principal diagnosis: Hernia Patient somewhat confused. Per the staff it seems to be lessening. White blood cell count normal at 6.2. Pain is Improving. Objective - Vital Signs Vital signs: Vital Signs Temp 97.5 F L 02/24/17 03:19 Pulse 72 02/24/17 03:19 Resp 16 02/24/17 03:19 BP 173/78 02/24/17 03:19 Pulse Ox 91 L 02/24/17 03:19 Intake & Output 02/23/17 02/24/17 02/24/17 18:59 06:59 18:59 Intake Total 400 1250 Output Total 602 1500 Balance -202 -250 Intake: IV 400 Sodium Chloride 0.9% 1, 400 000 ml @ 50 mls/hr IV . Q20H [facility] Rx#:[id number] Intake, IV Titration 400 Amount Sodium Chloride 0.9% 1, 400 000 ml @ 50 mls/hr IV . Q20H [facility] Rx#:[id number] Oral 0 850 Output: Drainage 100 Abdomen 100 Urine 500 1500 Uretheral ([place]) 500 Stool 2 Other: Voiding Method Indwelling Catheter Indwelling Catheter - Exam Abdomen: Soft, nondistended, mild incisional tenderness, dressing intact - Labs CBC & Chem 7: 02/24/17 06:50 02/24/17 06:50 Labs: Abnormal Lab Results - Last 24 Hours (Table) 02/24/17 02/24/17 Range/Units 06:50 06:50 RBC 3.05 L (4.30-5.90) m/uL Hgb 11.0 L (13.0-17.5) gm/dL Hct 32.8 L (39.0-53.0) % MCV 107.5 H (80.0-100.0) fL MCH 36.0 H (25.0-35.0) pg RDW 16.2 H (11.5-15.5) % Lymphocytes # 0.5 L (1.0-4.8) k/uL Sodium 132 L (137-145) mmol/L BUN 5 L (9-20) mg/dL Creatinine 0.55 L (0.66-1.25) mg/dL Calcium 7.7 L (8.4-10.2) mg/dL Total Protein 4.7 L (6.3-8.2) g/dL Albumin 2.5 L (3.5-5.0) g/dL Assessment and Plan (1) Incisional hernia Narrative/Plan: Continue diet as tolerated. Anticipate discharged home once patient's confusion is improved. Status: Acute
--- NOTE | 2017-02-24 12:25 | P.PN ---
Subjective Patient is doing better today. No significant confusion last night. He still complaining of nausea mostly after taking pain medication. Objective - Vital Signs Vital signs: Vital Signs Temp 97.9 F 02/24/17 07:00 Pulse 72 02/24/17 07:00 Resp 12 02/24/17 07:00 BP 135/81 02/24/17 07:00 Pulse Ox 92 L 02/24/17 07:00 Intake & Output 02/23/17 02/24/17 02/24/17 18:59 06:59 18:59 Intake Total 400 1250 Output Total 602 1500 Balance -202 -250 Intake: IV 400 Sodium Chloride 0.9% 1, 400 000 ml @ 50 mls/hr IV . Q20H [facility] Rx#:[id number] Intake, IV Titration 400 Amount Sodium Chloride 0.9% 1, 400 000 ml @ 50 mls/hr IV . Q20H [facility] Rx#:[id number] Oral 0 850 Output: Drainage 100 Abdomen 100 Urine 500 1500 Uretheral ([place]) 500 Stool 2 Other: Voiding Method Indwelling Catheter Indwelling Catheter Indwelling Catheter - Exam General: The patient is awake and alert, in no distress Eye: there is normal conjunctiva bilaterally. Neck: The neck is supple, there is no JVD. Cardiovascular: Normal S1-S2, no S3-S4, no murmurs. Respiratory: Lungs clear to auscultation bilaterally Gastrointestinal: There is an abdominal binder in place Musculoskeletal: There is no pedal edema. Neurological:. Speech is normal. Skin: Skin is warm and dry - Labs CBC & Chem 7: 02/24/17 06:50 02/24/17 06:50 Labs: Abnormal Lab Results - Last 24 Hours (Table) 02/24/17 02/24/17 Range/Units 06:50 06:50 RBC 3.05 L (4.30-5.90) m/uL Hgb 11.0 L (13.0-17.5) gm/dL Hct 32.8 L (39.0-53.0) % MCV 107.5 H (80.0-100.0) fL MCH 36.0 H (25.0-35.0) pg RDW 16.2 H (11.5-15.5) % Lymphocytes # 0.5 L (1.0-4.8) k/uL Sodium 132 L (137-145) mmol/L BUN 5 L (9-20) mg/dL Creatinine 0.55 L (0.66-1.25) mg/dL Calcium 7.7 L (8.4-10.2) mg/dL Total Protein 4.7 L (6.3-8.2) g/dL Albumin 2.5 L (3.5-5.0) g/dL Assessment and Plan Plan: 1. Recurrent incarcerated incisional hernia postoperative day #2 status post surgical repair with mesh placement 2. Underlying rheumatoid arthritis on methotrexate would hold during this hospitalization 3. History of alcohol abuse now in remission 4. Hospital-acquired delirium: Mostly with sundowning symptoms. Patient is currently awake and alert. He denies being depressed. He denies any suicidal thoughts or ideation. May discontinue sitter today and monitor closely. Today, I reviewed his medication list and lab work results. We'll continue symptomatic management for his nausea with Zofran and Compazine. Continue IV fluid hydration and monitor urine output closely discontinue [place] catheter and monitor urine output closely.. Kidney function within acceptable range. Repeat lab work in the morning. DVT prophylaxis with subcu Lovenox. Thank you very much for the consultation. I will continue to follow up on him closely. Discharge planning
[2017-02-24] MEDS: LACTATED RINGERS 1,000 ML IV SCH (12:33)
--- NOTE | 2017-02-24 14:09 | P.CN ---
Psychiatric Consult - . Consult date: 02/24/17 Consult:: 02/24/17 13:57 Identification and Reason for Consult: Patient is an 81-year-old male who is status post surgery for an incisional hernia consult was requested due to the patient verbalizing that he wanted to shoot himself. Patient's chart was reviewed and the patient was seen in his room no family members were present. History of Present Illness: Patient states that he does not recall saying that he wanted to shoot himself but does report that he was feeling a little confused yesterday. Patient states that he is not having any thoughts of hurting himself, has never had suicidal thoughts and has never made a suicide attempt. Patient states his thinking wasn't very clear yesterday and he felt a little confused and had difficulty focusing. Patient reports that today he is feeling much better, he slept well last evening and reports that he is eating but continues to report some mild nausea. Patient was not able to endorse any current or prior history of depressive symptoms, psychotic symptoms or manic symptoms. Patient had no current complaints and states that he is looking forward to returning to his home and states his thinking is much clearer today and he is not feeling confused. Past Psychiatric History: Patient reports no prior psychiatric treatment, psychiatric inpatient treatment and no psychiatric medications have been prescribed. Past Medical/Surgical History: Patient states he has rheumatoid arthritis and receives an infusion every 4 weeks, currently status post incisional hernia repair, prior bowel obstruction requiring colostomy with reversal. Current Medications Acetaminophen (Tylenol Tab) 650 mg PO Q6HR PRN PRN Reason: Mild Pain or Fever >= 100.5 Hydrocodone Bitart/Acetaminophen ([place] 5-325) 2 each PO Q6HR PRN PRN Reason: Severe Pain Last Admin: 02/22/17 10:29 Dose: 1 each Al Hydroxide/Mg Hydroxide (Maalox) 30 ml PO Q4HR PRN PRN Reason: GI Upset Last Admin: 02/22/17 14:24 Dose: 30 ml Docusate Sodium (Colace) 100 mg PO BID [facility] Last Admin: 02/24/17 08:24 Dose: 100 mg Enoxaparin Sodium (Lovenox) 40 mg SQ DAILY [facility] Last Admin: 02/24/17 08:23 Dose: 40 mg Famotidine (Pepcid) 20 mg PO BID [facility] Stop: 03/03/17 09:01 Last Admin: 02/24/17 08:24 Dose: 20 mg Folic Acid (Folic Acid) 1 mg PO DAILY [facility] Last Admin: 02/24/17 08:24 Dose: 1 mg Hydromorphone HCl (Dilaudid) 0.5 mg IVP Q3HR PRN PRN Reason: Moderate to Severe Pain Last Admin: 02/22/17 08:03 Dose: 0.5 mg Lactated Ringer's (Lactated Ringers) 1,000 mls @ 20 mls/hr IV .Q24H [facility] Last Admin: 02/24/17 12:33 Dose: Not Given Sodium Chloride (Saline 0.9%) 1,000 mls @ 50 mls/hr IV .Q20H [facility] Last Admin: 02/24/17 12:37 Dose: 50 mls/hr Lidocaine HCl (.Xylocaine 1% Inj (10mg/Ml) For Iv Start) 0.1 ml INTRADERMA PER PROTOCOL PRN PRN Reason: IV Start Last Admin: 02/21/17 10:03 Dose: 0.1 ml Lorazepam (Ativan) 0.5 mg IV Q6HR PRN PRN Reason: Anxiety Last Admin: 02/23/17 02:27 Dose: 0.5 mg Metoclopramide HCl (Reglan) 10 mg IVP Q6HR [facility] Last Admin: 02/24/17 12:37 Dose: 10 mg Miscellaneous Information (Magnesium Per Protocol) 1 each MISCELLANE DAILY PRN ; Protocol PRN Reason: Per Protocol Miscellaneous Information (Potassium Per Protocol) 1 each MISCELLANE DAILY PRN ; Protocol PRN Reason: Per Protocol Naloxone HCl (Narcan) 0.2 mg IV Q2M PRN PRN Reason: Opioid Reversal Ondansetron HCl (Zofran) 4 mg IVP Q6HR PRN PRN Reason: Nausea And Vomiting Last Admin: 02/24/17 03:45 Dose: 4 mg Prochlorperazine Maleate (Compazine) 5 mg PO Q8HR PRN PRN Reason: Nausea And Vomiting Last Admin: 02/22/17 19:34 Dose: 5 mg Tramadol HCl (Ultram) 50 mg PO Q6H PRN PRN Reason: Mild to Moderate Pain Last Admin: 02/23/17 04:54 Dose: 50 mg Family History: Patient denies any family history of any psychiatric problems, any alcohol or substance use. Social History: Patient reports that he was for 53 years and his 4 years ago, he is currently living alone and states that his one son lives next door and his other son lives 2 blocks away. Patient has 2 sons, 3 grandchildren and 1 great grandchild. 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 Patient states that he is caring for his own ADLs and gets assistance when he needs it from his extended family. 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 He states that he used to fix up cars and resell them but not now. Patient states that he was drafted into the [employer] and served for 2 years. Substance Use History: Patient states that he currently has 2 mixed drinks a week and states he has not had any alcohol for the last 6 weeks, he he reports he may have used more alcohol in the past but denies it was ever a problem, he denies any drug use currently or in the past states that he quit smoking 6 years ago. Legal History: Patient denies any legal problems Mental Status:Appearance/Attitude: Patient was in no acute distress and lying in his hospital bed, he made good eye contact and was cooperative. Behavior: Patient did not display any psychomotor agitation or retardation. Speech/Language: Patient's speech was spontaneous, normal volume and rhythm and he was coherent. Thought Process: Patient's thought processes were goal-directed and he was not circumstantial or tangential and there is no evidence of loose associations or flight of ideas. Thought Content: Patient denied any auditory or visual hallucinations and no paranoid or delusional ideation was elicited. Patient reported that his thinking was a little confused yesterday, he had difficulty focusing on the white board in the room but states that today his thinking is clear and he is feeling much better. Suicidal/Homicidal Ideation: Patient denied any current suicidal or homicidal ideation and reports that he has never had any suicidal ideation in the past nor made any suicide attempts. Sensorium/Cognition: Patient was alert and oriented to person, place, and time patient was able to tell me that he had his surgery on February 21 and that today was February 24. His memory was grossly intact. Mood/Affect: Patient's mood was pleasant and his affect was appropriate Insight/Judgement: Patient's insight and judgment are intact Assessment: Patient appears to have had some symptoms of the delirium, with confusion and making a statement that he wanted to kill himself. Patient currently is not having any symptoms of delirium, is not reporting any suicidal thoughts and denies feeling depressed. Patient is reporting that his thinking is much clearer today and acknowledged that he was slightly confused the other day. Laboratory Last Values WBC 6.2 k/uL (3.8-10.6) 02/24/17 06:50 RBC 3.05 m/uL (4.30-5.90) L 02/24/17 06:50 Hgb 11.0 gm/dL (13.0-17.5) L 02/24/17 06:50 Hct 32.8 % (39.0-53.0) L 02/24/17 06:50 MCV 107.5 fL (80.0-100.0) H 02/24/17 06:50 MCH 36.0 pg (25.0-35.0) H 02/24/17 06:50 MCHC 33.5 g/dL (31.0-37.0) 02/24/17 06:50 RDW 16.2 % (11.5-15.5) H 02/24/17 06:50 Plt Count 201 k/uL (150-450) 02/24/17 06:50 Neutrophils % 83 % 02/24/17 06:50 Lymphocytes % 8 % 02/24/17 06:50 Monocytes % 6 % 02/24/17 06:50 Eosinophils % 1 % 02/24/17 06:50 Basophils % 0 % 02/24/17 06:50 Neutrophils # 5.1 k/uL (1.3-7.7) 02/24/17 06:50 Lymphocytes # 0.5 k/uL (1.0-4.8) L 02/24/17 06:50 Monocytes # 0.4 k/uL (0-1.0) 02/24/17 06:50 Eosinophils # 0.1 k/uL (0-0.7) 02/24/17 06:50 Basophils # 0.0 k/uL (0-0.2) 02/24/17 06:50 Manual Slide Review Performed 02/22/17 06:42 Poikilocytosis (manual Present 02/22/17 06:42 Anisocytosis Slight 02/24/17 06:50 Macrocytosis Marked 02/24/17 06:50 Sodium 132 mmol/L (137-145) L 02/24/17 06:50 Potassium 3.8 mmol/L (3.5-5.1) 02/24/17 06:50 Chloride 103 mmol/L (98-107) 02/24/17 06:50 Carbon Dioxide 25 mmol/L (22-30) 02/24/17 06:50 Anion Gap 4 mmol/L 02/24/17 06:50 BUN 5 mg/dL (9-20) L 02/24/17 06:50 Creatinine 0.55 mg/dL (0.66-1.25) L 02/24/17 06:50 Est GFR (MDRD) Af Amer >60 (>60 ml/min/1.73 sqM) 02/24/17 06:50 Est GFR (MDRD) Non-Af >60 (>60 ml/min/1.73 sqM) 02/24/17 06:50 Glucose 94 mg/dL (74-99) 02/24/17 06:50 Calcium 7.7 mg/dL (8.4-10.2) L 02/24/17 06:50 Magnesium 1.8 mg/dL (1.6-2.3) 02/24/17 06:50 Total Bilirubin 0.6 mg/dL (0.2-1.3) 02/24/17 06:50 AST 34 U/L (17-59) 02/24/17 06:50 ALT 35 U/L (21-72) 02/24/17 06:50 Alkaline Phosphatase 61 U/L (38-126) 02/24/17 06:50 Total Protein 4.7 g/dL (6.3-8.2) L 02/24/17 06:50 Albumin 2.5 g/dL (3.5-5.0) L 02/24/17 06:50 Blood Type A Positive 02/16/17 10:00 Blood Type Recheck No 02/16/17 10:00 Antibody Screen NEGATIVE 02/16/17 10:00 Spec Expiration Date 02/23/2017229902/16/17 10:00 Diagnosis: Delirium, due to multiple etiologies now resolved Plan: At this time the patient is not exhibiting any symptoms of delirium and he is not voicing any suicidal ideation and is not endorsing any symptoms of depression, anxiety and there is no evidence of a psychotic process. I agree with discontinuing one-to-one as the patient is not suicidal. There is no need for any psychotropic medication at this time. Thank you for this consultation and if there are any questions or concerns please don't hesitate to contact me. 02/24/17 14:00
[2017-02-24] MEDS: MAG HYDROX/AL HYDROX/SIMETH 30 ML CUP PO PRN (14:17)
[2017-02-25 07:20] LABS: Anisocytosis Slight; Basophils % (A) 0 %; CH 36.6; Eosinophils # (A) 0.1 k/uL (0-0.7); Eosinophils % (A) 2 %; HCT 33.5 % (39.0-53.0); HGB 11.1 gm/dL (13.0-17.5); Luc # (Auto) 0.07; Luc % (Auto) 1; Lymphocytes # (A) 0.5 k/uL (1.0-4.8); Lymphocytes % (A) 8 %; MCH 35.6 pg (25.0-35.0); MCV 107.9 fL (80.0-100.0); Macrocytosis Marked; Monocytes # (A) 0.3 k/uL (0-1.0); Monocytes % (A) 6 %; Neutrophils # (A) 4.7 k/uL (1.3-7.7); Neutrophils % (A) 83 %; RDW 16.3 % (11.5-15.5); WBC 5.7 k/uL (3.8-10.6); WBC (Perox) 5.64
[2017-02-25 07:35] LABS: ALT 38 U/L (21-72); AST 29 U/L (17-59); Alkaline Phosphatase 63 U/L (38-126); Anion Gap 3 mmol/L; Blood Urea Nitrogen 3 mg/dL (9-20); Carbon Dioxide 28 mmol/L (22-30); Chloride 105 mmol/L (98-107); Glucose 91 mg/dL (74-99); Magnesium 1.9 mg/dL (1.6-2.3); Non-African American GFR(MDRD) >60 (>60 ml/min/1.73 sqM); Potassium 3.9 mmol/L (3.5-5.1); Sodium 136 mmol/L (137-145); Total Bilirubin 0.6 mg/dL (0.2-1.3); Total Protein 4.7 g/dL (6.3-8.2)
[2017-02-25] MEDS: ENOXAPARIN 40 MG/0.4 ML SYRINGE SQ SCH (08:04)
[2017-02-25] MEDS: FOLIC ACID 1 MG TAB PO SCH (08:05)
[2017-02-25] MEDS: DOCUSATE 100 MG CAP PO SCH (08:05)
[2017-02-25] MEDS: FAMOTIDINE 20 MG TAB PO SCH (08:05)
[2017-02-25] MEDS: METOCLOPRAMIDE 5 MG/ML 2 ML VIAL IVP SCH ×2 (08:13→08:14)
[2017-02-25 08:25] LABS: Manual Review Performed
[2017-02-25 08:26] LABS: Polychromasia Present
[2017-02-25] MEDS: LACTATED RINGERS 1,000 ML IV SCH (08:36)
--- NOTE | 2017-02-25 10:21 | P.PN ---
Subjective Principal diagnosis: Hernia Patient doing well today. His confusion seems to resolve. He was cleared for discharge by psychiatry. Says his pain is minimal. Would like to try going home today. Drain is still putting out about 20 mL every 12 hours. Objective - Vital Signs Vital signs: Vital Signs Temp 98.2 F 02/25/17 07:00 Pulse 75 02/25/17 07:00 Resp 12 02/25/17 08:00 BP 191/85 02/25/17 07:00 Pulse Ox 93 L 02/25/17 07:00 Intake & Output 02/24/17 02/25/17 02/25/17 18:59 06:59 18:59 Intake Total 600 Output Total 487 45 2 Balance -487 555 -2 Intake: IV 600 Sodium Chloride 0.9% 1, 600 000 ml @ 50 mls/hr IV . Q20H [facility] Rx#:[id number] Output: Drainage 35 45 Abdomen 35 45 Urine 450 Uretheral ([place]) 450 Stool 2 2 Other: Voiding Method Indwelling Catheter # Voids 400 - Exam Abdomen: Soft, nondistended, incision clean and dry - Labs CBC & Chem 7: 02/25/17 06:31 02/25/17 06:31 Labs: Abnormal Lab Results - Last 24 Hours (Table) 02/25/17 02/25/17 Range/Units 06:31 06:31 RBC 3.10 L (4.30-5.90) m/uL Hgb 11.1 L (13.0-17.5) gm/dL Hct 33.5 L (39.0-53.0) % MCV 107.9 H (80.0-100.0) fL MCH 35.6 H (25.0-35.0) pg RDW 16.3 H (11.5-15.5) % Lymphocytes # 0.5 L (1.0-4.8) k/uL Sodium 136 L (137-145) mmol/L BUN 3 L (9-20) mg/dL Creatinine 0.61 L (0.66-1.25) mg/dL Calcium 8.0 L (8.4-10.2) mg/dL Total Protein 4.7 L (6.3-8.2) g/dL Albumin 2.5 L (3.5-5.0) g/dL Assessment and Plan (1) Incisional hernia Narrative/Plan: Anticipate discharge today if cleared by medicine. Status: Acute
[2017-02-25 16:29] VITALS: BP 157/81; PULSE 72; RESP 16; TEMP 99.4
--- NOTE | 2017-02-25 18:12 | P.PN ---
Subjective Patient is doing well today. He is looking forward to be discharged home. Objective - Vital Signs Vital signs: Vital Signs Temp 99.4 F 02/25/17 15:00 Pulse 72 02/25/17 15:00 Resp 16 02/25/17 15:00 BP 157/81 02/25/17 15:00 Pulse Ox 95 02/25/17 15:00 Intake & Output 02/24/17 02/25/17 02/25/17 18:59 06:59 18:59 Intake Total 600 Output Total 487 45 2 Balance -487 555 -2 Intake: IV 600 Sodium Chloride 0.9% 1, 600 000 ml @ 50 mls/hr IV . Q20H [facility] Rx#:[id number] Output: Drainage 35 45 Abdomen 35 45 Urine 450 Uretheral ([place]) 450 Stool 2 2 Other: Voiding Method Indwelling Catheter # Voids 400 4 - Exam General: The patient is awake and alert, in no distress Eye: there is normal conjunctiva bilaterally. Neck: The neck is supple, there is no JVD. Cardiovascular: Normal S1-S2, no S3-S4, no murmurs. Respiratory: Lungs clear to auscultation bilaterally Gastrointestinal: There is an abdominal binder in place Musculoskeletal: There is no pedal edema. Neurological:. Speech is normal. Skin: Skin is warm and dry - Labs CBC & Chem 7: 02/25/17 06:31 02/25/17 06:31 Labs: Abnormal Lab Results - Last 24 Hours (Table) 02/25/17 02/25/17 Range/Units 06:31 06:31 RBC 3.10 L (4.30-5.90) m/uL Hgb 11.1 L (13.0-17.5) gm/dL Hct 33.5 L (39.0-53.0) % MCV 107.9 H (80.0-100.0) fL MCH 35.6 H (25.0-35.0) pg RDW 16.3 H (11.5-15.5) % Lymphocytes # 0.5 L (1.0-4.8) k/uL Sodium 136 L (137-145) mmol/L BUN 3 L (9-20) mg/dL Creatinine 0.61 L (0.66-1.25) mg/dL Calcium 8.0 L (8.4-10.2) mg/dL Total Protein 4.7 L (6.3-8.2) g/dL Albumin 2.5 L (3.5-5.0) g/dL Assessment and Plan Plan: 1. Recurrent incarcerated incisional hernia postoperative day #3 status post surgical repair with mesh placement 2. Underlying rheumatoid arthritis on methotrexate would hold during this hospitalization 3. History of alcohol abuse now in remission 4. Hospital-acquired delirium: Now resolved Patient is medically cleared for discharge home. He will follow-up with his mold swabber for directions on resuming his methotrexate.
== END 2017-02-25 17:38 | disposition home health service (06) | DRG 354 ==
LOC: OR 09:20 → 3SUR 13:15 → OR 02-23 16:29 → 3SUR 02-23 16:30
PROVIDERS: ADMIT Surgery; ATTEND Surgery
PROC: 0WUF0JZ Supplement Abdominal Wall with Synthetic Substitute, Open Approach (ICD-10-PCS; principal; 2017-02-21 11:35)
DX: K43.0 Incisional hernia with obstruction, without gangrene (principal); R45.851 Suicidal ideations; M06.9 Rheumatoid arthritis, unspecified; F05 Delirium due to known physiological condition; F10.21 Alcohol dependence, in remission; R11.0 Nausea; K21.9 Gastro-esophageal reflux disease without esophagitis; N42.9 Disorder of prostate, unspecified; Z82.49 Family history of ischemic heart disease and other diseases of the circulatory system; Z87.891 Personal history of nicotine dependence; Z90.49 Acquired absence of other specified parts of digestive tract; Z85.828 Personal history of other malignant neoplasm of skin; Z88.0 Allergy status to penicillin; Z86.59 Personal history of other mental and behavioral disorders; Z86.69 Personal history of other diseases of the nervous system and sense organs; Z87.11 Personal history of peptic ulcer disease; Z87.19 Personal history of other diseases of the digestive system; Z82.3 Family history of stroke; Z80.9 Family history of malignant neoplasm, unspecified; Z86.2 Personal history of diseases of the blood and blood-forming organs and certain disorders involving the immune mechanism; Z79.82 Long term (current) use of aspirin; Z79.899 Other long term (current) drug therapy; Z92.25 Personal history of immunosuppression therapy; Z90.79 Acquired absence of other genital organ(s)
CPT/HCPCS: 74000; 80053; 83735; 85025; 86850; 86900; 86901

== ENCOUNTER 2017-05-03 09:49 | Day surgery (SDC) | payer MEDICARE, BC ==
[2017-05-01 16:21] VITALS: BMI 23.9
[~2017-05-03 09:49] MED LIST changes: -FAMOTIDINE 20 MG/2 ML VIAL IV PRN; +HYDROmorphone 0.5 MG/0.5 ML SYRINGE IVP PRN; +LACTATED RINGERS 1,000 ML IV SCH; -LIDOCAINE 1% 20 ML VIAL (10MG/ML) FOR IV START INTRADERMA PRN; +ONDANSETRON 4 MG/2 ML VIAL IVP ONE; +Pre Op ABX Message 1 EACH MISC MISCELLANE ONE; -ceFAZolin 2 GM in SODIUM CHLORIDE 0.9% 100 ML IVPB ONE
[2017-05-03 10:45] VITALS: RESP 18; TEMP 98.3
[2017-05-03] MEDS ORDERED: LIDOCAINE 1% 20 ML VIAL (10MG/ML) FOR IV START INTRADERMA ONE (11:00)
--- NOTE | 2017-05-03 12:00 | P.GSHP ---
History of Present Illness H&P Date: 05/03/17 Chief Complaint: Abdominal wall seroma This 81-year-old male who underwent repair of a recurrent incisional hernia. Patient has developed a abdominal wall seroma. He's had multiple aspirations seroma. Patient presents today for NAE drain placement. Past Medical History Past Medical History: Blood Disorder, Cancer, GERD/Reflux, Prostate Disorder, Rheumatoid Arthritis (RA) Additional Past Medical History / Comment(s): Abdominal wall seroma, Hx 03/25/15 large bowel obstruction, HX Alcoholism. Skin Cancer. Chronic Thrombocytopenia. Sinus Prob. History of Any Multi-Drug Resistant Organisms: None Reported Past Surgical History: Appendectomy, Bowel Resection, Hernia Repair Additional Past Surgical History / Comment(s): 02-21-17 Incisional Hernia repair, Hernia Repair x4-Jayce ing, ventral. Ulcer - gastric scraping. LT Eye Surg D/T Benign Tumor. Skin Cancer Removals. Colonoscopy. BOWEL RESECTION W/ COLOSTOMY -; PICC LINE 04/01/15 - OUT NOW. incisional hernial repair at abdomen august 2015/ jun 29 2015 colostomy reversed per pt feb 2017 - incisional hernia repair Past Anesthesia/Blood Transfusion Reactions: No Reported Reaction Additional Past Anesthesia/Blood Transfusion Reaction / Comment(s): Pt has never recieved blood. Smoking Status: Former smoker - Past Family History Father Family Medical History: CVA/TIA Additional Family Medical History / Comment(s): Father had a pacemaker. He at age 85 yrs. Mother Family Medical History: Hypertension, Skin Disorder Additional Family Medical History / Comment(s): Mother had a pacemaker. She also had psoriasis. Sister(s) Family Medical History: Cancer Medications and Allergies Home Medications Medication Instructions Recorded Confirmed Type Abatacept/Maltose [Orencia] 750 mg IVPB Q30D 12/18/13 05/03/17 History Multivitamin [Men's Multi-Vitamin] 1 tab PO DAILY 12/18/13 05/03/17 History Methotrexate Sodium [Methotrexate] 12.5 mg PO FR 03/12/14 05/03/17 History Aspirin EC [Ecotrin Low Dose] 81 mg PO HS 02/18/15 05/03/17 History Iron 18 mg PO DAILY 08/16/15 05/03/17 History Docusate [Colace] 100 mg PO Q2D 09/22/15 05/03/17 History Folic Acid 0.8 mg PO DAILY 03/30/16 05/03/17 History Acetaminophen Tab [Tylenol Tab] 650 mg PO Q6H 03/05/17 05/03/17 History Allergies Allergy/AdvReac Type Severity Reaction Status Date / Time Penicillins AdvReac Nausea & Verified 05/03/17 10:41 Vomiting & Diarrhea Surgical - Exam Vital Signs Temp Pulse Resp BP Pulse Ox 98.3 F 70 18 201/88 96 05/03/17 10:44 05/03/17 10:44 05/03/17 10:44 05/03/17 10:44 05/03/17 10:44 - General well developed, no distress - Eyes PERRL - ENT normal pinna - Neck no masses - Respiratory normal expansion - Cardiovascular Rhythm: regular - Abdomen Abdominal wall seroma located in the midline scar Abdomen: soft, non tender Assessment and Plan Plan: Abdominal wall seroma. We'll perform drain placement and aspiration seroma.
[2017-05-03] MEDS ORDERED: LIDOCAINE 1% INJ 10MG/ML (20 ML MDV) ONE (13:10)
[2017-05-03] MEDS ORDERED: fentaNYL (PF) 50 MCG/ML 2 ML AMP ONE (13:10)
[2017-05-03] MEDS ORDERED: MIDAZOLAM 2 MG/2 ML VIAL ONE (13:10)
[2017-05-03] MEDS ORDERED: PROPOFOL 10 MG/ML 20 ML VIAL IV ONE (13:10)
[2017-05-03] MEDS ORDERED: LIDOCAINE 2%-EPI 1:100,000 20 ML VIAL SQ ONE ×3 (13:27→13:29)
[2017-05-03] MEDS ORDERED: BUPIVACAINE (PF) 0.25% 30 ML VIAL SQ ONE ×3 (13:27→13:29)
[2017-05-03] MEDS ORDERED: LACTATED RINGERS 1,000 ML IV ONE (13:38)
[2017-05-03 13:49] VITALS: BP 139/68; PULSE 73
--- NOTE | 2017-05-03 13:49 | P.OP ---
Date of Procedure: 05/03/17 Preoperative Diagnosis: Abdominal wall seroma Postoperative Diagnosis: Abdominal wall seroma Procedure(s) Performed: Aspiration of abdominal wall seroma and placement of NAE drain Anesthesia: MAC Surgeon: Daniel Kaur Pathology: none sent Condition: stable Disposition: PACU Description of Procedure: The patient's placed on the operative table in supine position. He received IV sedation. His abdomen was prepped and draped usual fashion. A 1.5 cm incision was made in the lower abdominal scar. And these appear hemostats the subcutaneous tissues were spread. The seroma cavity is entered. The stoma cavity was then aspirated clear yellow seroma fluid was aspirated. At this point a 18-Swazi channel drain was cut to appropriate length and placed into the stroma cavity entered through the left lower quadrant subcutaneous tissue. The drain was secured with 2-0 nylon. The subcutaneous tissues were closed with 3-0 Vicryl. The skin was closed interrupted 3-0 Monocryl suture. Dermabond was applied. Patient top she will was sent to recovery in stable condition.
== END 2017-05-03 14:39 | disposition home or self-care (01) ==
LOC: OR 09:49
PROVIDERS: ATTEND Surgery
DX: L76.34 Postprocedural seroma of skin and subcutaneous tissue following other procedure (principal); M06.9 Rheumatoid arthritis, unspecified; Y83.8 Other surgical procedures as the cause of abnormal reaction of the patient, or of later complication, without mention of misadventure at the time of the procedure; D69.6 Thrombocytopenia, unspecified; Z88.0 Allergy status to penicillin; Z87.891 Personal history of nicotine dependence; Z79.82 Long term (current) use of aspirin; Z79.899 Other long term (current) drug therapy; Z85.828 Personal history of other malignant neoplasm of skin
CPT/HCPCS: 10140; J2250; J1644; J1100; J2405; J2001; J3010; J2704

== ENCOUNTER 2017-05-09 06:39 | Day surgery (SDC) | payer MEDICARE, BC ==
[~2017-05-09 06:39] MED LIST changes: -DEXAMETHASONE SOD PHOSPHATE 10 MG/ML 1 ML VIAL IV ONE; -HYDROmorphone 0.5 MG/0.5 ML SYRINGE IVP PRN; -LACTATED RINGERS 1,000 ML IV SCH; -ONDANSETRON 4 MG/2 ML VIAL IVP ONE
[2017-05-09] MEDS ORDERED: DEXAMETHASONE SOD PHOSPHATE 10 MG/ML 1 ML VIAL IV ONE (06:52)
[2017-05-09] MEDS ORDERED: SCOPOLAMINE 1.5MG/72HR PATCH TRANSDERM ONE (06:52)
[2017-05-09] MEDS ORDERED: LIDOCAINE 1% 20 ML VIAL (10MG/ML) FOR IV START INTRADERMA PRN (06:52)
[2017-05-09] MEDS ORDERED: LACTATED RINGERS 1,000 ML IV SCH (06:52)
[2017-05-09] MEDS ORDERED: MIDAZOLAM 2 MG/2 ML VIAL IV PRN (06:52)
[2017-05-09] MEDS: ONDANSETRON 4 MG/2 ML VIAL IVP ONE ×2 (07:53→09:31)
--- NOTE | 2017-05-09 08:20 | P.GSHP ---
History of Present Illness H&P Date: 05/09/17 Chief Complaint: Infected abdominal seroma This 81-year-old male who had a open repair of a large incisional hernia with mesh several months ago. Patient removed his NAE drain on postoperative day 1 axilla. Patient developed a seroma. The seroma had repeated aspirations. He had a NAE drain in place. He is now developed an infected seroma. Patient presents today for incision and drainage of abdominal wall seroma with possible removal of infected mesh. Past Medical History Past Medical History: Blood Disorder, Cancer, GERD/Reflux, Prostate Disorder, Rheumatoid Arthritis (RA) Additional Past Medical History / Comment(s): Abdominal wall seroma, Hx 03/25/15 large bowel obstruction, HX Alcoholism. Skin Cancer. Chronic Thrombocytopenia. Sinus Prob. History of Any Multi-Drug Resistant Organisms: None Reported Past Surgical History: Appendectomy, Bowel Resection, Hernia Repair Additional Past Surgical History / Comment(s): 02-21-17 Incisional Hernia repair, Hernia Repair x4-Jayce ing, ventral. Ulcer - gastric scraping. LT Eye Surg D/T Benign Tumor. Skin Cancer Removals. Colonoscopy. BOWEL RESECTION W/ COLOSTOMY -; PICC LINE 04/01/15 - OUT NOW. incisional hernial repair at abdomen august 2015/ jun 29 2015 colostomy reversed per pt feb 2017 - incisional hernia repair Past Anesthesia/Blood Transfusion Reactions: No Reported Reaction Additional Past Anesthesia/Blood Transfusion Reaction / Comment(s): Pt has never recieved blood. Smoking Status: Former smoker - Past Family History Father Family Medical History: CVA/TIA Additional Family Medical History / Comment(s): Father had a pacemaker. He at age 85 yrs. Mother Family Medical History: Hypertension, Skin Disorder Additional Family Medical History / Comment(s): Mother had a pacemaker. She also had psoriasis. Sister(s) Family Medical History: Cancer Medications and Allergies Home Medications Medication Instructions Recorded Confirmed Type Abatacept/Maltose [Orencia] 750 mg IVPB Q30D 12/18/13 05/09/17 History Multivitamin [Men's Multi-Vitamin] 1 tab PO DAILY 12/18/13 05/09/17 History Methotrexate Sodium [Methotrexate] 12.5 mg PO FR 03/12/14 05/09/17 History Aspirin EC [Ecotrin Low Dose] 81 mg PO HS 02/18/15 05/09/17 History Iron 18 mg PO DAILY 08/16/15 05/09/17 History Docusate [Colace] 100 mg PO Q2D 09/22/15 05/09/17 History Folic Acid 0.8 mg PO DAILY 03/30/16 05/09/17 History Acetaminophen Tab [Tylenol Tab] 650 mg PO Q6H 03/05/17 05/09/17 History Allergies Allergy/AdvReac Type Severity Reaction Status Date / Time Penicillins AdvReac Nausea & Verified 05/09/17 06:51 Vomiting & Diarrhea Surgical - Exam Vital Signs Temp Pulse Resp BP Pulse Ox 98.0 F 70 16 183/82 100 05/09/17 07:07 05/09/17 07:07 05/09/17 07:07 05/09/17 07:07 05/09/17 07:07 - General well developed, no distress - Eyes PERRL - ENT normal pinna - Neck no masses, no bruits - Respiratory normal expansion - Cardiovascular Rhythm: regular - Abdomen Infected seroma with. Purulent fluid NAE drain Abdomen: soft, non tender Assessment and Plan Assessment: Abdominal wall seroma. Evidence of infection with purulent fluid and NAE drain. Patient will undergo incision and drainage of abdominal wall seroma with possible removal of infected mesh.
[2017-05-09] MEDS ORDERED: PROPOFOL 10 MG/ML 20 ML VIAL IV ONE (08:30)
[2017-05-09] MEDS ORDERED: LIDOCAINE 1% INJ 10MG/ML (20 ML MDV) ONE (08:30)
[2017-05-09] MEDS ORDERED: fentaNYL (PF) 50 MCG/ML 2 ML AMP ONE (08:30)
[2017-05-09] MEDS ORDERED: SUCCINYLCHOLINE CHLORIDE 100 MG/5 ML SYR IV ONE (08:30)
[2017-05-09] MEDS ORDERED: SODIUM CHLORIDE 0.9% IV ONE ×2 (08:40)
[2017-05-09] MEDS ORDERED: CLINDAMYCIN IV ONE ×2 (08:40)
--- NOTE | 2017-05-09 09:16 | P.OP ---
Date of Procedure: 05/09/17 Preoperative Diagnosis: Infected seroma Postoperative Diagnosis: Infected seroma Infected mesh Procedure(s) Performed: Incision and drainage of abdominal wall seroma Removal of infected mesh Anesthesia: FARZANEH Surgeon: Daniel Kaur Estimated Blood Loss (ml): 20 Pathology: other (Mesh, wound culture) Condition: stable Disposition: PACU Description of Procedure: The patient's placed on the operating table in the supine position. He received general anesthesia. His abdomen was prepped and draped in usual sterile fashion. The skin was incised in midline and there was a large amount of purulent fluid in the seroma cavity. This was aspirated and cultured. The mesh was seen. The mesh appeared to have minimal healing. The mesh was excised with sharp dissection. The wound was checked for hemostasis. Several small bleeding points were coagulated with electrocautery. The wound was then packed with Kerlix wet-to-dry. Patient was sent to recovery in stable condition.
[2017-05-09 09:29] VITALS: TEMP 97.8
[2017-05-09] MEDS: HYDROmorphone 0.5 MG/0.5 ML SYRINGE IVP PRN ×4 (09:30→09:48)
[2017-05-09 10:22] VITALS: RESP 18
[2017-05-09 11:27] VITALS: PULSE 76
[2017-05-09 11:28] VITALS: BP 176/72
== END 2017-05-09 12:57 | disposition home or self-care (01) ==
LOC: OR 06:39
PROVIDERS: ATTEND Surgery
DX: T85.79XA Infection and inflammatory reaction due to other internal prosthetic devices, implants and grafts, initial encounter (principal); L76.34 Postprocedural seroma of skin and subcutaneous tissue following other procedure; Y82.8 Other medical devices associated with adverse incidents; Z87.891 Personal history of nicotine dependence; M06.9 Rheumatoid arthritis, unspecified; Z88.0 Allergy status to penicillin; Z79.899 Other long term (current) drug therapy
CPT/HCPCS: 10180; 11008; 88304; 87070; 87205; 87075; 87077; 87186; J1644; J1100; J2405; J2001; J3010; J0330; J2704; J1170